=== PATIENT | female | born 1950 | race African-American/Black ===

== ENCOUNTER 2024-02-06 13:03 | Emergency (ER) | payer OTHER ==
--- OUTSIDE RECORDS SUMMARY | 2024-02-06 13:05 | XMS REPORT | Continuity of Care Document ---
Author Name Unknown Address [address] [facility] [address] [place] [address] [facility] thconnect Address [address] [facility] [place] [address] Care Team Providers Care Dietary Clerk Name Role Phone Sarita Barba Attending Clinician Amanda joyce NURSE, NURSE Attending Clinician Sarita Acosta Admitting Clinician Amanda joyce Payers Payer Name Policy Type Policy Number Effective Date Expirati on Date Source Social History Social Habit Start Date Stop Date Quantity Comments Source Sex Assigned At Female [facility] Smoking Status Start Date Stop Date Source Unknown if ever smoked [facility] Encounters Start Date/Time End Date/Time Encounter Type Admission Type Attending Clinicians Care Facility Care Department Encounter ID Source 2023-06-03 10:18:00 2023-06-03 10:18:00 Outpatient Sarita Barboza [facility] [id number] [facility] 2020-09-07 11:13:00 2020-09-07 11:13:00 Outpatient NURSE, NURSE [facility] [id number] [facility] 2020-09-07 11:13:00 2020-09-07 11:13:00 Outpatient NURSE, NURSE [facility] [id number] [facility]
--- NOTE | 2024-02-06 13:48 | ER ---
Nurse's Notes [facility] Name: Candis Tim Age: 73 yrs Sex: Female : 1950 Arrival Date: 02/06/2024 Time: 13:03 Bed DX3 Private MD: Diagnosis: Acute embolism and thrombosis of other specified deep vein of right lower extremity Presentation: 02/05 13:37 Chief complaint: Patient states: Sent for DVT in RLE. Swelling for 5 weeks. Sent in ll1 PCP. Coronavirus screen: Client denies travel out of the [place] in the last 14 days. At this time, the client does not indicate any symptoms associated with coronavirus-19. Ebola Screen: Patient denies travel to an Ebola-affected area in the 21 days before illness onset. Initial Sepsis Screen: Does the patient meet any 2 criteria? No. Patient's initial sepsis screen is negative. Does the patient have a suspected source of infection? No. Patient's initial sepsis screen is negative. Risk Assessment: Do you want to hurt yourself or someone else? Patient reports no desire to harm self or others. Onset of symptoms was December 30, 2023. 13:37 Method Of Arrival: Wheelchair ll1 13:37 Acuity: MICHELLE 3 ll1 Triage Assessment: 13:40 General: Appears uncomfortable, Behavior is calm, cooperative, appropriate for age. ll1 Pain: Complains of pain in right leg. Musculoskeletal: Reports pain in right leg swelling RLE, + for DVT outpatient US. Historical: - Allergies: 13:39 No Known Allergies; ll1 - PMHx: 13:39 Hypertensive disorder; Hypercholesterolemia; ll1 - Immunization history:: Adult Immunizations up to date. - Infectious Disease History:: Denies. - Social history:: Smoking status: Patient denies any tobacco usage or history of. Screenin:[address] [facility] ED Fall Risk Assessment (Adult) History of falling in the last 3 months, kb3 including since admission No falls in past 3 months (0 pts) Confusion or Disorientation No (0 pts) Intoxicated or Sedated No (0 pts) Impaired Gait No (0 pts) Mobility Assist Device Used No (0 pt) Altered Elimination No (0 pt) Score/Fall Risk Level 0 - 2 = Low Risk Oriented to surroundings. Abuse screen: Denies threats or abuse. Nutritional screening: No deficits noted. Tuberculosis screening: No symptoms or risk factors identified. Assessment: 14:00 General: Appears in no apparent distress. comfortable, Behavior is calm, cooperative, kb3 Pt brought back to ER chairs from lobby, no s/s of distress. Pt reports she was seen in outpatient radiology and diagnosed with superficial femoral clot and a popliteal DVT. Pt was sent to ER for treatment. Pt reports right leg swelling x several weeks. . 14:00 Pain: Complains of pain in right leg. kb3 Vital Signs: 13:37 BP 184 / 107; Pulse 78; Resp 17; Temp 97.1; Pulse Ox 98% ; Pain 0/10; ll1 14:05 BP 166 / 90; Pulse 77; Resp 18; Temp 98; Pulse Ox 100% ; kb3 13:37 Pain Scale: Adult ll1 ED Course: 13:12 Patient arrived in ED. mg5 13:28 Arm band placed on. ll1 13:33 Nataliia Morfin FNP-C is PSYCHIATRICP. kb 13:33 Graciela Weinberg MD is Attending Physician. kb 13:38 Triage completed. ll1 14:00 Patient has correct armband on for positive identification. Provided Education on: Plan kb3 of care, decreased work outs until cleared by MD, new medication - Eliquis instructions provided. . 14:00 No provider procedures requiring assistance completed. Patient did not have IV access kb3 during this emergency room visit. Administered Medications: 14:01 Drug: Eliquis PO 10 mg PO once Route: PO; kb3 14:29 Follow up: Response: No adverse reaction kb3 Medication: 14:00 VIS not applicable for this client. kb3 Outcome: 13:47 Discharge ordered by . kb 14:00 Discharged to home ambulatory, kb3 14:00 Condition: stable 14:00 Discharge instructions given to patient, Instructed on discharge instructions, follow up and referral plans. medication usage, Demonstrated understanding of instructions, follow-up care, medications, Prescriptions given X 1, 14:30 Patient left the ED. kb3 Signatures: Nataliia Morfin FNP-C FNP-Ckb Lewis, Lynsay, RN RN ll1 Celia Love RN RN kb3 Connie Madison mg5 Corrections: (The following items were deleted from the chart) 14:30 14:29 BP 166 / 90; Pulse 77bpm; Resp 18bpm; Pulse Ox 100%; Temp 98F; kb3 kb3
--- NOTE | 2024-02-06 13:48 | EDPHYS ---
Physician Documentation [facility] Name: Candis Tim Age: 73 yrs Sex: Female : 1950 Arrival Date: 02/06/2024 Time: 13:03 Bed DX3 Private MD: ED Physician Graciela Weinberg HPI: 02/05 14:01 This 73 yrs old Black Female presents to ER via Wheelchair with complaints of Sent By kim Rodríguez 14:01 Pt is a 73 year old female who presents for DVT in right leg. States she has had kb swelling to right leg for about 5 weeks, went to PCP today and had a stat US ordered and done. DVT was found in the right leg so pt was instructed to come to the ED for evaluation. . Historical: - Allergies: 13:39 No Known Allergies; ll1 - PMHx: 13:39 Hypertensive disorder; Hypercholesterolemia; ll1 - Immunization history:: Adult Immunizations up to date. - Infectious Disease History:: Denies. - Social history:: Smoking status: Patient denies any tobacco usage or history of. ROS: 13:59 Constitutional: As per HPI kb Exam: 13:59 Constitutional: This is a well developed, well nourished patient who is awake, alert, kb and in no acute distress. Head/Face: Normocephalic, atraumatic. ENT: Moist Mucous membranes Cardiovascular: Regular rate Respiratory: Respirations even and unlabored. No increased work of breathing. Talking in full sentences Abdomen/GI: Soft, non-tender. No distention Skin: Warm, dry with normal turgor. Normal color. Neuro: Awake and alert, GCS 15, oriented to person, place, time, and situation. Moves all extremities. Normal gait. 13:59 Musculoskeletal/extremity: Extremities: grossly normal except: noted in the right leg: swelling, ROM: intact in all extremities, Circulation is intact in all extremities. Sensation intact. Weight bearing: able to fully bear weight, Vital Signs: 13:37 BP 184 / 107; Pulse 78; Resp 17; Temp 97.1; Pulse Ox 98% ; Pain 0/10; ll1 14:05 BP 166 / 90; Pulse 77; Resp 18; Temp 98; Pulse Ox 100% ; kb3 13:37 Pain Scale: Adult ll1 MDM: 13:33 Patient medically screened. kb 13:43 Management of patient was discussed with the following: Dr Lopes agrees with kb starting Eliquis. Pt has no shortness of breath, oxygen 99% on room air. No further diagnostics required at this time. Pt educated on return precautions. External Records Reviewed: Outpatient record: Ultrasound done prior to arrival revealed acute thrombus right superficial femoral vein, right popliteal vein and calf vein . 13:57 Differential diagnosis: dvt, pe, cellulitis. Data reviewed: vital signs, nurses notes. kb Test considered but Not performed: CT: ct chest considered but pt has no shortness of breath, oxygen 99% on room air. . Counseling: I had a detailed discussion with the patient and/or guardian regarding the historical points, exam findings, and any diagnostic results supporting the discharge/admit diagnosis, the need for outpatient follow up, a family practitioner, to return to the emergency department if symptoms worsen or persist or if there are any questions or concerns that arise at home. Administered Medications: 14:01 Drug: Eliquis PO 10 mg PO once Route: PO; kb3 14:29 Follow up: Response: No adverse reaction kb3 Disposition: 18:13 I agree with the assessment and plan of care. I reviewed the patient's care provided by gb the Advanced Practice Provider and agree with the diagnosis and treatment plan. Disposition Summary: 02/06/24 13:47 Discharge Ordered Notes: Location: Home Condition: Stable kb Diagnosis - Acute embolism and thrombosis of other specified deep vein of right lower extremity kb Followup: kb - With: Emergency Department - When: As needed - Reason: Worsening of condition Followup: kb - With: Private Physician - When: 2 - 3 days - Reason: Recheck today's complaints, Continuance of care, Re-evaluation by your physician Discharge Instructions: - Deep Vein Thrombosis kb - Discharge Summary Sheet rt Forms: - Medication Reconciliation Form kb - Antibiotic Education kb - Prescription Opioid Use kb - Patient Portal Instructions kb - Leadership Thank You Letter kb Prescriptions: - Eliquis DVT-PE Treat 30D Start 5 mg (74 tabs) Oral Tablet, Dose Pack - take 1 tablet ORAL route per package directions; 1 Pack; Refills: 0, Product rt Selection Permitted Signatures: Nataliia Morfin FNP-C FNP-Ckb Lewis, Lynsay RN RN ll1 Celia Love RN RN kb3 Lenard, Graciela, MD MD gb1
[2024-02-06] MEDS ORDERED: APIXABAN 5 MG TABLET ONE (13:58)
[2024-02-06 14:54] VITALS: BP 166/90; TEMP 98; O2SAT 100
== END 2024-02-06 14:30 | disposition home or self-care (01) ==
LOC: ER 13:03
DX: I82.491 Acute embolism and thrombosis of other specified deep vein of right lower extremity (principal); I10 Essential (primary) hypertension; E78.00 Pure hypercholesterolemia, unspecified
CPT/HCPCS: 99283